=== PATIENT | female | born 1990 ===

== ENCOUNTER 2017-12-21 21:47 | Emergency (ER) | payer BC ==
[2017-12-21] MEDS ORDERED: Sodium Chloride 0.9% 1,000 ML IV ONE (22:56)
[2017-12-21] MEDS ORDERED: DiphenhydrAMINE 50 mg/ml Inj IVP STA (22:57)
--- NOTE | 2017-12-21 22:58 | C.PDOC ---
History Of Present Illness Pt is a 27 yo with new onset L sided headache which began after working out at the gym.Pt states felt nauseated,pos photophobic,saw flashing lights,wavy lines.Pt admits to prior hx migraines but they are not usu associated with visual sx.Pt claims this is the worst CURRIE of her life though she is on her cell phone in no apparent distress Chief Complaint (Nursing): Headache History/Exam Limitations: no limitations Onset/Duration Of Symptoms: Hrs Current Symptoms Are (Timing): Still Present Severity: Moderate Pain Scale Rating Of: 5 Quality: Sharp, "Pain" Preceeding Symptoms: Visual Disturbances Associated Symptoms: Photophobia, Nausea Recent travel outside of the [place]: No Past Medical History Vital Signs: Last Vital Signs Temp 97.8 F 12/22/17 01:17 Pulse 65 12/22/17 01:17 Resp 16 12/22/17 01:17 BP 106/81 12/22/17 01:17 Pulse Ox 100 12/22/17 01:17 - Medical History PMH: No Chronic Diseases, Migraine Surgical History: No Surg Hx Family History: States: No Known Family Hx - Social History Hx Alcohol Use: Yes Hx Substance Use: No - Immunization History Hx Tetanus Toxoid Vaccination: No Hx Influenza Vaccination: No Hx Pneumococcal Vaccination: No Review Of Systems Except As Marked, All Systems Reviewed And Found Negative. Constitutional: Negative for: Fever, Chills Eyes: Negative for: Pain, Vision Change Cardiovascular: Negative for: Chest Pain, Palpitations Respiratory: Negative for: Cough, Shortness of Breath Neurological: Positive for: Headache. Negative for: Weakness, Numbness, Seizures Psych: Negative for: Anxiety Physical Exam - Physical Exam Appears: Well Skin: Normal Color Head: Atraumatic Nose: Normal, Flaring Oral Mucosa: Moist Tongue: Normal Appearing Lips: Normal Appearing Gingiva: Normal Appearing Throat: Normal Neck: Normal, Normal ROM, No Decreased ROM, No Trachea Midline, No Trachea Deviated, Supple Lymphatic: Deferred Chest: Symmetrical Cardiovascular: Rhythm Regular Respiratory: Normal Breath Sounds Gastrointestinal/Abdominal: Normal Exam, Bowel Sounds Back: Normal Inspection, CVA Tenderness Extremity: Normal ROM Neurological/Psych: Oriented x3, Normal Speech, Normal Cognition, Normal Cranial Nerves, No Cerebellar Signs, Normal Motor, Normal Sensation, No Dysarthria, No Romberg Gait: Steady ED Course And Treatment O2 Sat by Pulse Oximetry: 98 Medical Decision Making Medical Decision Making: Pt feels much better after Toradol,compazine Disposition - Disposition Referrals: Non [facility] Provider, [Primary Care Provider] - Disposition: HOME/ ROUTINE Disposition Time: 05:47 Condition: GOOD Prescriptions: Acetaminophen/Butalbital/Caf [Fioricet] 1 tab PO TID PRN #21 tab PRN Reason: Pain, Mild (1-3) Instructions: Migraine Headache (DC) Forms: Invisible ([place]) Print Language: CZECH - Clinical Impression Clinical Impression: Headache, Migraine
[2017-12-21] MEDS ORDERED: DiphenhydrAMINE 50 mg/ml Inj ONE (23:19)
[2017-12-21] MEDS ORDERED: Sodium Chloride 0.9% 1,000 ML ONE (23:19)
--- NOTE | 2017-12-22 00:43 | CT ---
EXAM: CT Head Without Intravenous Contrast CLINICAL HISTORY: 27 years old, female; Condition or disease; Headache; Headache not specified TECHNIQUE: Axial computed tomography images of the head/brain without intravenous contrast. All CT scans at this facility use one or more dose reduction techniques, viz.: automated exposure control; ma/kV adjustment per patient size (including targeted exams where dose is matched to indication; i.e. head); or iterative reconstruction technique. COMPARISON: No relevant prior studies available. FINDINGS: Brain: No intracranial hemorrhage. No mass. No definite edema. Ventricles: No hydrocephalus. Bones/joints: No acute fracture. Soft tissues: Unremarkable. Sinuses: No acute sinusitis. Mastoid air cells: No mastoid effusion. Orbits: Unremarkable as visualized. IMPRESSION: 1. No definite acute intracranial abnormality.
[2017-12-22 01:18] VITALS: BP 106/81; PULSE 65; RESP 16; TEMP 97.8
[2017-12-22 05:45] VITALS: O2SAT 98
== END 2017-12-22 01:18 | disposition home or self-care (01) ==
LOC: SUPCPDRO 21:47 → C.ER 21:47
DX: G43.909 Migraine, unspecified, not intractable, without status migrainosus (principal)
CPT/HCPCS: 70450; 96361; 96374; 96375; 99284; J0780; J1200; J1885; J7040